=== PATIENT | female | born 1975 | race Caucasian/White ===

== ENCOUNTER 2019-08-08 08:13 | Emergency (ER) | payer OTHER ==
--- OUTSIDE RECORDS SUMMARY | 2019-08-08 08:20 | XMS REPORT | Continuity of Care Document ---
:1975 External Reference #:[id number] Author Name Patricia Steiner MD (transmitted by agent of provider Carlton Sesay) Address [address] [facility] [place] [address] Care Team Providers Name Role Phone Hernandez Shafer III, MD - Internal Care Team Information Rn Plastics Medicine Ann-Marie Rich MD - Obstetrics & Care Team Information Rn Plastics Gynecology Patricia Steiner MD - Orthopaedic Care Team Information Rn Plastics [phone] 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 Social History Type Date Description Comments Sex Unknown Tobacco Use Start: Unknown Light tobacco smoker (10 or fewer cigarettes/day) Smoking Status Reviewed: 07/10/19 Light tobacco smoker (10 or fewer cigarettes/day) ETOH Use 04/11/2016 Currently consumes 0-4 drinks/ week alcohol Tobacco Use Start: Unknown Patient is a current smoker, smokes some days Recreational Drug Use Sporadically uses Marijuana Exercise Type/Frequency Exercises regularly Allergies, Adverse Reactions, Alerts Description No Known Drug Allergies Medications Active Medications SIG Qnty Indications Ordering Provider Date Valacyclovir HCL 1 tabs by mouth 30tabs Beata Preston, N.P. 06/16/2019 500mg twice daily x 3 Tablets days as needed Duloxetine HCL take 1 capsule 30caps F34.1 Hernandez Shafer, 06/04/2019 30mg Caps by mouth every M.D. DR Part morning for 1 week, then 2 tabs daily Meloxicam 1 by mouth every 14tabs M25.512 Hernandez Shafer, 04/24/2019 15mg Tablets day M.D. History Medications No Active Medications Unknown 06/04/2019 - 06/04/2019 No Active Medications Unknown 06/04/2019 - 06/04/2019 No Active Medications Unknown 04/24/2019 - 04/24/2019 Medications Administered in Office Medication SIG Qnty Indications Ordering Provider Date Triamcinolone (Kenalog) Patricia Steiner MD 06/09/2019 Injection PPD Injection Nurse Visit Adri[facility] 04/24/2016 PPD Injection Que Thomas NP 04/11/2016 Immunizations CPT Code Status Date Vaccine Lot # [id number] Given 07/19/2016 Tdap - Tetanus/Diptheria/Acellular Pertussis [id number] Given 07/19/2016 Influenza Virus Vaccine, Quadrivalent, Split, Preservative Free Vital Signs Date Vital Result Comment 07/10/2019 8:44am Height 68 inches 5'8" Weight 175.00 lb Heart Rate 70 /min BP Systolic 126 mmHg BP Diastolic 74 mmHg Respiratory Rate 12 /min Pain Level 5 BMI (Body Mass Index) 26.6 kg/m2 06/16/2019 1:23pm Height 68 inches 5'8" Weight 170.00 lb Heart Rate 92 /min BP Systolic 127 mmHg BP Diastolic 76 mmHg O2 % BldC Oximetry 96 % BMI (Body Mass Index) 25.8 kg/m2 Results Test Date Facility Test Result H/L Range Note HIV 1&2 p24 06/16/2019 [facility] HIV 4th Negative Nonreactive Screen [address] [place] [address] [phone] Laboratory test 06/16/2019 [facility] Syphillis Igg Negative Negative finding [address] [place] [address] [phone] HCG < 0.60 mIU/mL 1 TSH (Thyroid Stim Horm) 0.40 mcIU/mL Normal 0.34-5.60 Laboratory 06/16/2019 [facility] Cytology SEE RESULT 2, [address] [place] [address] [phone] GC/Chlamydia 06/16/2019 [facility] Chlamydia Negative Negative [address] [address] [phone] Neisseria gonorrhoeae (GC) [place] Negative Negative 1 <5.0 Negative 5.0 - 25.0 Indeterminate (Repeat testing recommended after 72 hours) >25.0 Positive Perimenopausal women can display HCG levels of up to 20 mIU/mL 2 [id number] 3 SEE RESULT BELOW Name: KRYSTLE WRIGHT : [address]: Beata Preston NP Acct: [id number] Unit: [id number] AGE: 43 Location: [facility] Re06/16/19 SEX: F Status: REG REF SPEC: [id number] HUNTER: 06/16/19-[address] [facility] [address]: Beata Preston HOUSEHOLD REFRIGERATOR MECHANIC REQ: [id number] RECD: 06/16/19205 STATUS: SOUT _ ORDERED: TP IMAGE ANALYS, HPV/Thin Prep COMMENTS: [id number] Negative for Intraepithelial lesion or Malignancy Date Time Test Result Flag (u) Normal Range 06/16/19 1403 HPV BRANDON Negative Negative The high-risk HPV types detected by the assay include: 16, 18, 31, 33, 35, 39, 45, 51, 52, 56, 58, 59, 66, and 68. A. Ectocervical/Endocervical Specimen Adequacy: Satisfactory of evaluation Transformation zone component not identified Patient Information: HPV: High risk HPV RNA testing regardless of pap results. Actual Specimen Date: 06/16/19 ?: N Post Menopausal?: N Hysterectomy?: N Previous Abnormal Pap Smears?:N Signed by and Reported on: NITHYA Ahumada (ASCP) 1529 This Pap test was evaluated with the assistance of the [employer] ([employer])Prep Test Imaging System. Due to cytologic findings at the train operations manager microscope, comprehensive manual rescreening by a Yard Supervisor may be required. The Pap Smear is a screening test designed to aid in the detection of premalignant and malignant conditions of the uterine cervix. It is not a diagnostic procedure and should not be used as the sole means of detecting cervical cancer. Both false- positive and false- negative reports do occur. Depending on your risk status, a Pap smear should be obtained and evaluated every 1-3 years. END OF REPORT DEPARTMENT OF PATHOLOGY, [address] [place] [address] Daren Bustos M.D. Director [facility] # [id number] Procedures Date Code Description Status 06/09/2019 23409 Inject/Drain Joint/Bursa Major W/O US Completed Medical Devices Description No Information Available Encounters Type Date Location Provider Dx Diagnosis Office Visit 06/16/2019 [facility] Beata Preston N.P. N92.6 Irregular 1:00p [facility] menstruation, unspecified Z11.3 Encntr screen for infections w sexl mode of transmiss Z12.4 Encounter for screening for malignant neoplasm of cervix Office Visit 06/09/2019 1:30p Orthopedic Tari Pennington75.42 Impingement Services Of syndrome of left [facility] 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 shoulder Assessments Date Code Description Provider 06/16/2019 N92.6 Irregular menstruation, unspecified Beata Preston N.P. 06/16/2019 Z11.3 Encounter for screening for infections Beata Preston N.P. with a predominantly sexual mode of transmission 06/16/2019 Z12.4 Encounter for screening for malignant Beata Preston N.P. 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 examination without abnormal findings 06/04/2019 M25.512 Pain in left shoulder Hernandez Shafer M.D. 06/04/2019 N92.6 Irregular menstruation, unspecified Hernandez Shafer M.D. 06/04/2019 F34.1 Dysthymic disorder Hernandez Shafer M.D. 04/24/2019 M25.512 Pain in left shoulder Hernandez Shafer M.D. Plan of Treatment No Information Available Functional Status Description No Information Available Mental Status Description No Information Available Referrals Refer to Dr Reason for Referral Status Appt Date Joana Rees, PT, OCS Urge incontinence Sent [address] [place] [address] [phone] Ann-Marie Rich MD chronic irregular menses, routine MAINTENANCE MAN care Sent [address] [place] [address] [phone] Patricia Steiner MD chronic L shoulder pain Sent 06/09/[address] [facility] [place] [address] [phone] [facility] chronic depressive sx, hx of ? ADHD Sent [address] [place] [address] [phone]
--- OUTSIDE RECORDS SUMMARY | 2019-08-08 08:20 | XMS REPORT | Continuity of Care Document ---
:1975 External Reference #:[id number] Author Name Patricia Steiner MD (transmitted by agent of provider Racquel Gonzalez) Address [address] 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: 06/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 Injury of shoulder region Patricia Steiner MD Onset: 06/09/2019 Disorder of shoulder Patricia Steiner MD Onset: 06/09/2019 Social History Type Date Description Comments Sex Unknown ETOH Use 04/11/2016 Currently consumes 0-4 drinks/ week alcohol Recreational Drug Use Denies Drug Use Tobacco Use Start: Unknown Patient is a current smoker, smokes some days Smoking Status Reviewed: 06/09/19 Patient is a current smoker, smokes some days Exercise Type/Frequency Exercises regularly Allergies, Adverse Reactions, Alerts Description No Known Drug Allergies Medications Active Medications SIG Qnty Indications Ordering Provider Date Duloxetine HCL take 1 capsule by 30caps F34.1 Hernandez Shafer, 06/04/2019 30mg mouth every M.D. Caps DR Part morning for 1 week, then 2 tabs daily History Medications No Active Medications Unknown 06/04/2019 - 06/04/2019 No Active Medications Unknown 06/04/2019 - 06/04/2019 No Active Medications Unknown 04/24/2019 - 04/24/2019 Meloxicam 1 by mouth 14tabs M25.512 Hernandez Cardoso 04/24/2019 - 15mg Tablets every day Estela Shafer 06/04/2019 Medications Administered in Office Medication SIG Qnty Indications Ordering Provider Date PPD Injection Nurse Visit [place] 04/24/2016 PPD Injection Que Thomas, LONNIE 04/11/2016 Immunizations CPT Code Status Date Vaccine Lot # [id number] Given 07/19/2016 Tdap - Tetanus/Diptheria/Acellular Pertussis [id number] Given 07/19/2016 Influenza Virus Vaccine, Quadrivalent, Split, Preservative Free Vital Signs Date Vital Result Comment 06/09/2019 1:40pm Height 68 inches 5'8" Weight 180.00 lb BP Systolic 122 mmHg BP Diastolic 68 mmHg Respiratory Rate 18 /min Pain Level 8 BMI (Body Mass Index) 27.4 kg/m2 06/04/2019 1:30pm Height 68 inches 5'8" Weight 180.00 lb Heart Rate 81 /min BP Systolic Sitting 114 mmHg BP Diastolic Sitting 75 mmHg BMI (Body Mass Index) 27.4 kg/m2 Results Description No Information Available Procedures Date Code Description Status 06/09/2019 09682 Inject/Drain Joint/Bursa Major W/O US Completed Medical Devices Description No Information Available Encounters Type Date Location Provider Dx Diagnosis Office Visit 06/09/2019 Orthopedic Patricia Steiner MD M75.42 Impingement 1:30p [facility] 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 shoulder Assessments Date Code Description Provider 06/09/2019 M75.42 Impingement syndrome of left shoulder Patricia Steiner MD 06/09/2019 S46.102A Unspecified injury of muscle, fascia and Patricia Steiner MD tendon of long head of biceps, left arm, initial [...] shoulder Hernandez Shafer M.D. Plan of Treatment Future Appointment(s):07/07/2019 1:15 pm - Patricia Steiner MD at [facility]06/16/2019 1:00 pm - [facility]07/06/2019 1:00 pm - Hernandez [facility] - Patricia Steiner, MDM75.42 Impingement syndrome of left shoulderNew Xrays:MRI Shoulder Left W/O, Ordered: 06/09/19New Therapy: Physical TherapyFollow up:Follow up: 4 szamsL35.102A Unspecified injury of muscle, fascia and tendon of long head of biceps, left arm, initial encounterNew Therapy:Physical CsbwsfpG99.212 Secondary osteoarthritis, left ulfhachoV53.2 CervicalgiaNew Therapy:Physical Therapy Functional Status Description No Information Available Mental Status Description No Information Available Referrals Refer to Reason for Referral Status Appt Date Ann-Marie Rich MD chronic irregular menses, routine BIOLOGICAL LAB TECHNICIAN care Sent [address] [place] [address] [phone] Patricia Steiner MD chronic L shoulder pain Sent 06/09/[address] [facility] [place] [address] [phone] [facility] chronic depressive sx, hx of ? ADHD Sent [address] [place] [address] [phone]
--- OUTSIDE RECORDS SUMMARY | 2019-08-08 08:20 | XMS REPORT | Continuity of Care Document ---
:1975 External Reference #:[id number] Author Name Beata Preston N.P. 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: 06/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 Injury of shoulder region Patricia Steiner MD Onset: 06/09/2019 Disorder of shoulder Patricia Steiner MD Onset: 06/09/2019 Social History Type Date Description Comments Sex Unknown Tobacco Use Start: Unknown Light tobacco smoker (10 or fewer cigarettes/day) Smoking Status Reviewed: 06/16/19 Light tobacco smoker (10 or fewer cigarettes/day) [...] HCL 1 tabs by mouth 30tabs Beata Preston N.PBandar 06/16/2019 500mg twice daily x 3 Tablets [...] CPT Code Status Date Vaccine Lot # [id number] Given 07/19/2016 Tdap - Tetanus/Diptheria/Acellular Pertussis [id number] Given 07/19/2016 Influenza Virus Vaccine, Quadrivalent, Split, Preservative Free Vital Signs Date Vital Result Comment 06/16/2019 1:23pm Height 68 inches 5'8" Weight 170.00 lb Heart Rate 92 /min BP Systolic 127 mmHg BP Diastolic 76 mmHg O2 % BldC Oximetry 96 % BMI (Body Mass Index) 25.8 kg/m2 06/09/2019 1:40pm Height 68 inches 5'8" Weight 180.00 lb BP Systolic 122 mmHg BP Diastolic 68 mmHg Respiratory Rate 18 /min Pain Level 8 BMI (Body Mass Index) 27.4 kg/m2 Results Test Date Facility Test Result H/L Range Note Laboratory test 06/16/2019 [facility] Cytology <pending> finding [address] [place] [address] [phone] Procedures Date Code Description Status 06/09/2019 83873 Inject/Drain Joint/Bursa Major W/O US Completed Medical Devices Description No Information Available Encounters Type Date Location Provider Dx Diagnosis Office Visit 04/24/2019 [facility] Hernandez Shafer, M25.512 Pain in left 11:20a Medicine - [facility] M.D. shoulder Assessments Date Code Description Provider 06/16/2019 N92.6 Irregular menstruation, unspecified Beata Preston, N.PBandar 06/16/2019 Z11.3 Encounter for screening for infections [...] Patricia Steiner MD at [facility]07/06/2019 1:00 pm - Hernandez Shafer M.D. at [facility] Internal Medicine - [facility]06/16/2019 - Beata Preston N.P.N92.6 Irregular menstruation, unspecifiedComments:Plan to check TSH, HCG, TVUS. We will follow up with you regarding those results.I suspect that your symptoms may be due to perimenopause. I recommend that you read the book The Period Repair Manual.I have summarized some of the recommendations in the Menstrual Health patient education handout. Please being tracking your period on an lan as this can provide vital information.Z11.3 Encounter for screening for infections with a predominantly sexual mode of transmissionComments:Plan to check GC/Chlamydia, HIV, Syphillis. We will follow up with you regarding those results.Z12.4 Encounter for screening for malignant neoplasm of cervixComments:A pap smear has been sent today, will follow up with those results. Functional Status Description No Information Available Mental Status Description No Information Available Referrals Refer to Reason for Referral Status Appt Date Joana Rees, PT, OCS Urge incontinence Sent [address] [place] [address] [phone] Ann-Marie Rich MD chronic irregular menses, routine MAINTENANCE MGR care Sent [address], [address] [place], [place] [address] [phone] Patricia Steiner MD chronic L shoulder pain Sent 06/09/2019 [address] [facility] [place] [address] [phone] [facility] chronic depressive sx, hx of ? ADHD Sent [address] [place] [address] [phone]
[2019-08-08 08:25] VITALS: BP 126/78
--- NOTE | 2019-08-08 08:35 | UC ---
Skin Complaint HPI - HPI Summary HPI Summary: patient found a tick embeded in R breast this am. she removed tick at home. Not sure how long tick has been present but was gardening yesterday patient wants Lyme prevention - History of Current Complaint Chief Complaint: UCSkin Time Seen by Provider: 08/08/19 08:16 Stated Complaint: TICK BITE Hx Obtained From: Patient Hx Last Menstrual Period: current ?: No Onset/Duration: Sudden Onset Pain Intensity: 1 Location: Other - R lateral breast Aggravating Factor(s): Nothing Alleviating Factor(s): Nothing Associated Signs & Symptoms: Positive: Negative Related History: Insect Bite/Sting - Allergy/Home Medications Allergies/Adverse Reactions: Allergies Allergy/AdvReac Type Severity Reaction Status Date / Time No Known Allergies Allergy Verified 08/08/19 08:25 PMH/Surg Hx/FS Hx/Imm Hx Previously Healthy: Yes - Surgical History Surgical History: None - Family History Known Family History: Positive: Non-Contributory - Social History Occupation: Employed Full-time Lives: Alone Alcohol Use: Rare Substance Use Type: Marijuana Smoking Status (MU): Never Smoked Tobacco Review of Systems All Other Systems Reviewed And Are Negative: Yes Constitutional: Positive: Negative Skin: Positive: Other - tick bite Respiratory: Positive: Negative Cardiovascular: Positive: Negative Is Patient Immunocompromised?: No Physical Exam Triage Information Reviewed: Yes Appearance: Well-Appearing, No Pain Distress, Well-Nourished Vital Signs: Initial Vital Signs Temp 97.8 F 08/08/19 08:20 Pulse 88 08/08/19 08:20 Resp 16 08/08/19 08:20 BP 126/78 08/08/19 08:20 Pulse Ox 98 08/08/19 08:20 Vital Signs Reviewed: Yes Respiratory Exam: Normal Respiratory: Positive: Lungs clear Cardiovascular Exam: Normal Cardiovascular: Positive: RRR Psychological Exam: Normal Skin Exam: Other - 2mm red PW with surrounding superficial erythema. no bullseye rash Course/Dx - Differential Diagnoses - Skin Complaint Differential Diagnoses: Foreign Body, Tick Born Illness - Diagnoses Provider Diagnosis: Tick bite Discharge ED - Sign-Out/Discharge Documenting (check all that apply): Patient Departure All imaging exams completed and their final reports reviewed: No Studies - Discharge Plan Condition: Good Disposition: HOME Prescriptions: Doxycycline Monohydrate [Mondoxyne Nl] 100 mg PO ONCE #2 capsule Patient Education Materials: Tick Bite (ED) Referrals: Hernandez Shafer MD [Primary Care Provider] - 5 Days (if no better) Additional Instructions: keep area clean and dry report signs infection take doxycycline as directed today - Billing Disposition and Condition Condition: GOOD Disposition: Home - Attestation Statements Provider Attestation: Per institutional requirements, I have reviewed the chart, however, I was not consulted specifically or made aware of this patient by the midlevel provider. I did not personally evaluate, interact with , or disposition this patient.
== END 2019-08-08 08:38 | disposition home or self-care (01) ==
LOC: UCEAST 08:13
DX: S20.161A Insect bite (nonvenomous) of breast, right breast, initial encounter (principal); W57.XXXA Bitten or stung by nonvenomous insect and other nonvenomous arthropods, initial encounter; Y92.9 Unspecified place or not applicable
CPT/HCPCS: 99212; G0463